=== PATIENT | male | born 1950 | race Caucasian/White ===

== ENCOUNTER 2019-08-26 07:30 | Outpatient (RCR) | payer MEDICARE, BC, SELFPAY ==
--- NOTE | 2019-07-06 09:59 | OTOPEVAL ---
OT RE-EVALUATION AND PROGRESS NOTE 07/06/19 Thank you for referring this patient to [facility]. As described below, Ad is making progress toward ROM goals. Plan to see him for another re-evaluation in 3 weeks prior to his next follow-up appointment. Please review, sign, date and return this plan of care LILLIAN. I agree with and certify that the following plan of care is medically necessary. Referring Physician Date Attending Provider: Dr. Newton Farooq *OT Outpatient Re-Evaluation Assessment Status Re-evaluation Evaluation Information Problem Diagnosis (L) UE tendon transfer Additional Evaluation Detail Surgery 04/21/19 FCR -> EDC PT -> ECRB w/ ECRL tendon graft PL -> EPL The patient has attended his initial evaluation (05/25/19), two treatment sessions, and this re-evaluation. Per new orders received 06/17/19, regularly scheduled treatments were cancelled and he is only to be seen for re-evaluations every 3 weeks to monitor active extension and to review HEP. Subjective Information Ad reports good compliance Query Text:As Reported By Patient/ with HEP, only performing 5 Family qualty reps 5-6 times a day. Reports soreness in the area of the pronator quadratus muscle. Has been wearing volar orthosis at night and dorsal CUFFER hand based orthosis during the day, removing for HEP and hygiene. Functionally reports improvements with increase active release/active extension of the fingers. Reports feeling tight in the wrist, hand , and fingers. Pain Assessment Timing of Pain Assessment Re-assessment Self Report Self Report Pain Level 0 Pain Scale Pain Scale Used Numeric (1 - 10) Pain Score Pain Score 0: Self Report Upper Extremity Range of Motion Elbow/Forearm Range of Motion Left Forearm Supination - Active 70 Forearm Pronation - Active 90 Wrist Range of Motion Left Wrist Flexion - Active 25 Wrist Extension - Active 30 Wrist Radial Deviation - Active 10 Wrist Ulnar Deviation - Active 15 Wrist Range of Motion Comments At SOC the patient rested in
--- NOTE | 2019-07-27 08:38 | OTOPEVAL ---
OCCUPATIONAL THERAPY RE-EVALUATION REPORT 07/27/19 Thank you for referring this patient to [facility]. Ad will benefit from continued skilled OT 1x/week for 4 weeks to progress functional coordination activities and retrain proper body mechanics to facilitate optimal LUE use for ADLs. Please review, sign, date and return this plan of care LILLIAN. I agree with and certify that the following plan of care is medically necessary. Referring Physician Date Attending Provider: Dr. Newton Farooq *OT Outpatient Re-Evaluation Therapy Assessment Status Assessment Status Re-evaluation Evaluation Information Problem Diagnosis (L) UE tendon transfer Additional Evaluation Detail Surgery 04/21/19 FCR -> EDC PT -> ECRB w/ ECRL tendon graft PL -> EPL Ad has only participated in 1 session in the past month as his orders are for re- assesments every 3 weeks to monitor active extension and to review HEP. Subjective Information Ad reports good compliance Query Text:As Reported By Patient/ with HEP, only performing 5 Family qualty reps 5-6 times a day. Has been wearing volar orthosis at night and dorsal [employer] hand based orthosis during the day, removing for HEP and hygiene. He reports feeling not much change in ROM at this time. Functionally reports, I can touch my fingers more. I can last picker and release easier. It's just slow. Also noted improvements with being able to use the left hand to drive. Pain Assessment Timing of Pain Assessment Timing of Pain Assessment Re-assessment Self Report Self Report Pain Level 0 Pain Score Pain Score 0: Self Report Upper Extremity Range of Motion Elbow/Forearm Range of Motion Left Forearm Supination - Active 70 Forearm Pronation - Active 90 Wrist Range of Motion Left Wrist Flexion - Active 25 Wrist Extension - Active 30 Wrist Radial Deviation - Active 10 Wrist Ulnar Deviation - Active 10 Wrist Range of Motion Comments No change in AROM since last re-evaluation. Finger Range of Motion Left Index Finger MCP Joint Extension - -15 Active Middle Finger MCP Joint Extension - -15 Ac
--- NOTE | 2019-08-26 08:24 | OTOPEVAL ---
OT REASSESS AND DISCHARGE REPORT 08/26/2019 Thank you for referring this patient to [facility]. As described below, Ad will be discharged this date from skilled OT. He is independent with his home program. Please review, sign, date and return this plan of care LILLIAN. I agree with and certify that the following plan of care is medically necessary. Referring Physician Date Attending Provider: Dr. Newton Farooq *OT Outpatient Evaluation Start: 05/28/19 16:34 Assessment Status Assessment Status Re-evaluation Evaluation Information Problem Diagnosis (L) UE tendon transfer Additional Evaluation Detail Surgery 04/21/19 FCR -> EDC PT -> ECRB w/ ECRL tendon graft PL -> EPL Ad has only participated in 1 session in the past month as his orders are for re- assessments every 3 weeks to monitor active extension and to review HEP. The patient has attended his initial evaluation (05/25/19), two treatment sessions, and this re-evaluation. Per new orders received 06/17/19, regularly scheduled treatments were cancelled and he is only to be seen for re-evaluations every 3 weeks to monitor active extension and to review HEP. Subjective Information Ad reports function is Query Text:As Reported By Patient/ returning . He puts a Family conscious effort into using the LUE as much as possible. He is now able to do dishes and open jars. Pain Assessment Timing of Pain Assessment Timing of Pain Assessment Re-assessment Pain Scale Pain Scale Used Numeric (1 - 10) Upper Extremity Range of Motion Elbow/Forearm Range of Motion Left Forearm Supination - Active 70 Forearm Pronation - Active 90 Elbow/Forearm Range of Motion Comments No change in forearm ROM this assessment period. Wrist Range of Motion Left Wrist Flexion - Active 30 Wrist Extension - Active 35 Wrist Radial Deviation - Active 5 Wrist Ulnar Deviation - Active 15 Wrist Range of Motion Comments Wrist extension improved 5* since last reassess. Wrist flexion improved 5*
== END 2019-08-26 09:27 | disposition home or self-care (01) ==
LOC: ANHOT 07:30
DX: G56.32 Lesion of radial nerve, left upper limb (principal)
CPT/HCPCS: 97110; 97112; 97140

== ENCOUNTER 2022-10-16 01:07 | Day surgery (SDC) | payer MEDICARE, BC, SELFPAY ==
[2022-10-04 09:46] VITALS: BMI 32.5
[2022-10-16 06:53] LABS: Glucose Point of Care 159 mg/dl (65-105)
[2022-10-16 06:55] VITALS: BP 137/66; PULSE 63; RESP 20; TEMP 36.2; O2SAT 95
[2022-10-16] MEDS: LACTATED RINGERS 1,000 ML 150 ML IV CONT (06:57)
--- NOTE | 2022-10-16 07:31 | PM.HPGS ---
History of Present Illness History of Present Illness Consent: Risks, benefits, and alternatives have been discussed and questions answered. Patient agrees to proceed with procedure. Chief complaint: neoplasm screening Narrative: Ad Skelton is a 72 year old male Presents for screening colonoscopy. Previous colonoscopy 10 years ago did reveal several benign colon polyps. Patient reports that his current weight appetite and bowel movements are normal. Patient denies abdominal pain. He has had no bleeding. Family history is noncontributory. Review of Systems Review of Systems: Review of systems noncontributory. [facility] Social History Social History Smoking status: Never smoker Alcohol intake: current Substance use: never Living arrangements: with family Spiritual care concerns: No Meds Home Medications and Allergies Home Medications Medication Instructions Recorded Confirmed Type amlodipine 10 mg tablet 10 mg PO DAILY 10/04/22 10/16/22 History aspirin 81 mg tablet 81 mg PO DAILY 10/04/22 10/16/22 History atorvastatin 80 mg tablet 80 mg PO DAILY 10/04/22 10/16/22 History carvedilol 3.125 mg tablet 3.125 mg PO BID 10/04/22 10/16/22 History dapagliflozin 10 mg tablet 10 mg PO DAILY 10/04/22 10/16/22 History (Farxiga) diphenhydramine HCl 25 mg tablet 25 mg PO HS PRN Insomnia 10/04/22 10/16/22 History (Benadryl Allergy) docusate sodium 100 mg capsule 100 mg PO BID 10/04/22 10/16/22 History doxazosin 2 mg tablet 2 mg PO BID 10/04/22 10/16/22 History hydralazine 50 mg tablet 50 mg PO TID 10/04/22 10/16/22 History hydrochlorothiazide 12.5 mg capsule 12.5 mg PO 3XW 10/04/22 10/16/22 History metformin 500 mg tablet,extended 1,000 mg PO DAILY 10/04/22 10/16/22 History release 24 hr nitroglycerin 0.4 mg sublingual 0.4 mg sublingual DIRECTED 10/04/22 10/16/22 History tablet psyllium husk 0.52 gram capsule 0.52 g PO BID 10/04/22 10/16/22 History (Fiber (psyllium husk)) sitagliptin phosphate 100 mg 100 mg PO DAILY 10/04/22 10/16/22 History tablet (Januvia) Allergies Allergy/AdvReac Type Severity Reaction Status Date / Time lisinopril Allergy Intermediate Other Verified 10/16/22 06:52 Vital Signs Vital Signs - 24 hr 10/16/22 06:55 Temperature 97.2 F L Pulse Rate 63 Respiratory Rate 20 Blood Pressure 137/66 Pulse Oximetry 95 Oxygen Delivery Room Air Exam Narrative: Physical exam reveals patient to be alert. Vital signs stable. HEENT exam is unremarkable. Patient is anicteric. Lungs are clear to auscultation and percussion. Heart is without murmur or extra sounds. Abdomen bowel sounds are present soft nontender with no organomegaly. Digital external rectal exam is normal. Assessment and Plan Assessment and plan (1) Encounter for screening colonoscopy: Code(s): Z12.11 - Encounter for screening for malignant neoplasm of colon Status: Acute Assessment and Plan: Patient presents today for screening colonoscopy. Has been 10 years since last exam. Patient does have a prior history colon polyps. Further recommendations will be given after endoscopy.
--- NOTE | 2022-10-16 07:51 | WPDANESEPPF ---
Anes - Initial Pre Proc Eval Procedure: Operation Date: 10/16/22 08:00 Proposed Procedures p Screening Colonoscopy - Wilmer Knight MD Date/Time: 10/16/22 07:51 Surgeon: Wilmer Knight MD Pre Op Diagnosis: neoplasm screening Patient Data Age: 72 Gender: M Height: 1.75 m Weight: 93.6 kg Last Vital Signs Temp 97.2 F L 10/16/22 06:55 Pulse 63 10/16/22 06:55 Resp 20 10/16/22 06:55 BP 137/66 10/16/22 06:55 Pulse Ox 95 10/16/22 06:55 O2 Del Method Room Air 10/16/22 06:55 Allergies Allergy/AdvReac Type Severity Reaction Status Date / Time lisinopril Allergy Intermediate Other Verified 10/16/22 06:52 Home Medications Medication Instructions Recorded Confirmed Type amlodipine 10 mg tablet 10 mg PO DAILY 10/04/22 10/16/22 History aspirin 81 mg tablet 81 mg PO DAILY 10/04/22 10/16/22 History atorvastatin 80 mg tablet 80 mg PO DAILY 10/04/22 10/16/22 History carvedilol 3.125 mg tablet 3.125 mg PO BID 10/04/22 10/16/22 History dapagliflozin 10 mg tablet 10 mg PO DAILY 10/04/22 10/16/22 History (Farxiga) diphenhydramine HCl 25 mg tablet 25 mg PO HS PRN Insomnia 10/04/22 10/16/22 History (Benadryl Allergy) docusate sodium 100 mg capsule 100 mg PO BID 10/04/22 10/16/22 History doxazosin 2 mg tablet 2 mg PO BID 10/04/22 10/16/22 History hydralazine 50 mg tablet 50 mg PO TID 10/04/22 10/16/22 History hydrochlorothiazide 12.5 mg capsule 12.5 mg PO 3XW 10/04/22 10/16/22 History metformin 500 mg tablet,extended 1,000 mg PO DAILY 10/04/22 10/16/22 History release 24 hr nitroglycerin 0.4 mg sublingual 0.4 mg sublingual DIRECTED 10/04/22 10/16/22 History tablet psyllium husk 0.52 gram capsule 0.52 g PO BID 10/04/22 10/16/22 History (Fiber (psyllium husk)) sitagliptin phosphate 100 mg 100 mg PO DAILY 10/04/22 10/16/22 History tablet (Januvia) Laboratory Tests 10/16/22 06:50 POC Capillary Glucose 159 mg/dl H mg/dl (65-105) Patient hx anesthesia problems: none Family hx anesthesia problems: none Results Review: All pre-operative results and documents have been reviewed as part of the pre-operative evaluation. [facility] Social History Social History Smoking status: Never smoker Alcohol intake: current Substance use: never Living arrangements: with family Spiritual care concerns: No Anes - Eval Final PreProcedure Day of Procedure 10/16/22 07:51 Patient weight: obese Heart: regular rate and rhythm Lungs: clear to auscultation Airway: Mallampati scale class II Neurological: alert and oriented Last oral intake: >/= 8 hours ASA classification: III Emergent: no Anesthetic plan: proceed Anesthesia type and monitoring: general GIVS and standard monitoring Results Review: All pre-operative results and documents have been reviewed as part of the pre-operative evaluation. Informed Consent: The patient's anesthetic plan and its attendant risks and benefits were discussed with the patient/family/POA. Questions were solicited and answers provided to the satisfaction of the patient/family/POA.
[2022-10-16] MEDS: SIMETHICONE ORAL SUSPENSION 20 MG/0.3 ML 30 ML BOTTLE 0.6 ML IRRIGATION (08:12)
[2022-10-16 08:29] VITALS: BP 99/56; PULSE 63; RESP 22; TEMP 36.2; O2SAT 99
[2022-10-16 08:39] VITALS: BP 119/68; PULSE 87; RESP 21; TEMP 36.2; O2SAT 99
[2022-10-16 08:49] VITALS: BP 104/59; PULSE 64; RESP 25; TEMP 36.2; O2SAT 99
== END 2022-10-16 08:51 | disposition home or self-care (01) ==
PROVIDERS: PCP Internal Medicine Endocrinology, Diabetes & Metabolism; Visit Provider Internal Medicine Gastroenterology
PROC: 0DJD8ZZ Inspection of Lower Intestinal Tract, Via Natural or Artificial Opening Endoscopic (ICD-10-PCS; CPT 45378; principal; 2022-10-16 08:00)
DX: Z12.11 Encounter for screening for malignant neoplasm of colon (principal); K64.8 Other hemorrhoids; D12.3 Benign neoplasm of transverse colon; Z79.82 Long term (current) use of aspirin; Z79.84 Long term (current) use of oral hypoglycemic drugs; E66.9 Obesity, unspecified; Z68.30 Body mass index [BMI] 30.0-30.9, adult
CPT/HCPCS: 45385; 82948; 88305; J2370; J2704; J7120